=== PATIENT | male | born 1975 | race African-American/Black ===

== ENCOUNTER 2016-09-02 10:59 | Emergency (ER) | payer MEDICAID ==
[~2016-09-02] VITALS: Ht 175.3 cm; Wt 127.0 kg
[~2016-09-02 10:59] MED LIST: NAPR-677; PHEN100C4; TOPI50TA; TYLENOL
[2016-09-02] MEDS ORDERED: LORAZEPAM 2MG/ML CPJ IV PRN (11:45)
[2016-09-02 12:18] LABS: BASOPHILS % 1.2 % (0.0-2.0); EOSINOPHILS % 3.1 % (0.0-5.0); HEMATOCRIT. 38.1 % (42.0-52.0); HEMOGLOBIN. 12.8 g/dL (14.0-18.0); LYMPHOCYTES % 25.7 % (20.0-50.0); MEAN CORPUSCULAR HEMOGLOBIN 27.4 pg (28.0-32.0); MEAN CORPUSCULAR VOLUME 81.9 fL (80.0-94.0); MEAN PLATELET VOLUME 7.2 fl (7.4-10.4); MONOCYTES % 9.4 % (2.0-8.0); NEUTROPHILS % 60.6 % (40.0-76.0); PLATELET 195 x1000/uL (130-400); RED BLOOD CELL COUNT 4.66 mill/uL (4.7-6.1); RED CELL DISTRIBUTION WIDTH 15.1 % (11.6-14.6)
[2016-09-02 12:29] LABS: CARBON DIOXIDE 25 mEq/L (21-32); CHLORIDE 106 mEq/L (98-107); ETHANOL BLOOD < 10 mg/dL
[2016-09-02 12:34] LABS: PHENYTOIN 8.6 ug/mL (10-20)
[2016-09-02 13:29] VITALS: BP 142/50
[2016-09-02] MEDS ORDERED: PHENYTOIN SODIUM EXTENDED 100MG CAPSULE PO ONE (13:30)
== END 2016-09-02 13:34 | disposition home or self-care (01) ==
LOC: ER 11:10
DX: R56.9 Unspecified convulsions (principal); R79.89 Other specified abnormal findings of blood chemistry; K21.9 Gastro-esophageal reflux disease without esophagitis; I10 Essential (primary) hypertension; E78.00 Pure hypercholesterolemia, unspecified
CPT/HCPCS: 36415; 80053; 80185; 85025; 99284; G0482; Z7610

== ENCOUNTER 2016-10-05 10:48 | Emergency (ER) | payer MEDICAID ==
[~2016-10-05] VITALS: Ht 175.3 cm; Wt 91.0 kg
[2016-10-05 11:29] LABS: EOSINOPHILS % 2.2 % (0.0-5.0); HEMATOCRIT. 43.7 % (42.0-52.0); HEMOGLOBIN. 14.3 g/dL (14.0-18.0); LYMPHOCYTES % 34.1 % (20.0-50.0); MEAN CORPUSCULAR VOLUME 82.5 fL (80.0-94.0); MEAN PLATELET VOLUME 7.4 fl (7.4-10.4); MONOCYTES % 10.6 % (2.0-8.0); NEUTROPHILS % 52.1 % (40.0-76.0); PLATELET 224 x1000/uL (130-400); RED BLOOD CELL COUNT 5.29 mill/uL (4.7-6.1); RED CELL DISTRIBUTION WIDTH 15.1 % (11.6-14.6)
[2016-10-05 11:41] LABS: PARTIAL THROMBOPLASTIN TIME 25.9 sec (23.4-31.0); PROTHROMBIN TIME 10.9 sec (9.4-11.6)
[2016-10-05 11:45] LABS: CARBON DIOXIDE 24 mEq/L (21-32); CHLORIDE 109 mEq/L (98-107); CREATINE KINASE 160 IU/L (39-308); CREATINE KINASE MB FRACTION 1.4 ng/mL (0.5-3.6); TROPONIN I < 0.02 ng/mL (0.00-0.04)
[2016-10-05 11:53] LABS: PHENYTOIN 25.3 ug/mL (10-20)
[2016-10-05 13:33] VITALS: BP 112/71
== END 2016-10-05 13:34 | disposition home or self-care (01) ==
LOC: ER 10:48
DX: R07.89 Other chest pain (principal); R51 Headache; R03.0 Elevated blood-pressure reading, without diagnosis of hypertension; M79.1 Myalgia; G40.909 Epilepsy, unspecified, not intractable, without status epilepticus; T42.0X5A Adverse effect of hydantoin derivatives, initial encounter; Y92.89 Other specified places as the place of occurrence of the external cause
CPT/HCPCS: 36415; 71010; 80053; 80185; 82550; 82553; 83690; 83880; 84484; 85025; 85610; 85730; 93005; 99285; Z7610

== ENCOUNTER 2016-11-17 18:52 | Emergency (ER) | payer MEDICAID ==
[~2016-11-17] VITALS: Ht 177.8 cm; Wt 107.0 kg
[2016-11-17 20:17] LABS: CHLORIDE 107 mEq/L (98-107)
[2016-11-17 20:19] LABS: CARBON DIOXIDE 25 mEq/L (21-32); EOSINOPHILS % 2.2 % (0.0-5.0); HEMATOCRIT. 36.7 % (42.0-52.0); HEMOGLOBIN. 12.3 g/dL (14.0-18.0); LYMPHOCYTES % 32.3 % (20.0-50.0); MEAN CORPUSCULAR HEMOGLOBIN 27.8 pg (28.0-32.0); MEAN CORPUSCULAR VOLUME 82.7 fL (80.0-94.0); MEAN PLATELET VOLUME 7.1 fl (7.4-10.4); MONOCYTES % 9.5 % (2.0-8.0); PLATELET 189 x1000/uL (130-400); RED BLOOD CELL COUNT 4.43 mill/uL (4.7-6.1)
[2016-11-17] MEDS ORDERED: PHENYTOIN SODIUM 1,000 MG in SODIUM CHLORIDE 0.9% 100 ML IV ONE (21:15)
[2016-11-17] MEDS ORDERED: PHENYTOIN SODIUM EXTENDED 100MG CAPSULE PO ONE (21:30)
[2016-11-17 22:01] VITALS: BP 127/77
== END 2016-11-17 22:02 | disposition home or self-care (01) ==
LOC: ER 20:04
DX: R56.9 Unspecified convulsions (principal); R79.89 Other specified abnormal findings of blood chemistry; E78.00 Pure hypercholesterolemia, unspecified
CPT/HCPCS: 36415; 80053; 80185; 85025; 99284; J1165; Z7610; J7050

== ENCOUNTER 2016-12-22 10:26 | Emergency (ER) | payer MEDICAID ==
[~2016-12-22] VITALS: Ht 177.8 cm; Wt 100.0 kg
[2016-12-22 12:38] LABS: CARBON DIOXIDE 24 mEq/L (21-32); CHLORIDE 109 mEq/L (98-107)
[2016-12-22 13:09] VITALS: BP 126/89
== END 2016-12-22 13:15 | disposition home or self-care (01) ==
LOC: ER 10:33
DX: R56.9 Unspecified convulsions (principal); R79.89 Other specified abnormal findings of blood chemistry
CPT/HCPCS: 36415; 80048; 80185; 99284; Z7610

== ENCOUNTER 2017-12-08 11:12 | Emergency (ER) | payer MEDICAID ==
[~2017-12-08] VITALS: Ht 175.3 cm; Wt 87.0 kg
[2017-12-08] MEDS ORDERED: SODIUM CHLORIDE 0.9% 1,000 ML IV ONE (11:48)
[2017-12-08 12:26] LABS: HEMATOCRIT. 42.6 % (42.0-52.0); MEAN CORPUSCULAR HEMOGLOBIN 27.8 pg (28.0-32.0); MEAN CORPUSCULAR VOLUME 84.9 fL (80.0-94.0); MEAN PLATELET VOLUME 7.1 fl (7.4-10.4); MONOCYTES % 5.5 % (2.0-8.0); NEUTROPHILS % 77.5 % (40.0-76.0); PLATELET 244 x1000/uL (130-400); RED BLOOD CELL COUNT 5.02 mill/uL (4.7-6.1); RED CELL DISTRIBUTION WIDTH 15.4 % (11.6-14.6)
[2017-12-08 12:37] LABS: CHLORIDE 109 mEq/L (98-107); ETHANOL BLOOD < 10 mg/dL
[2017-12-08] MEDS ORDERED: PHENYTOIN SODIUM EXTENDED 100MG CAPSULE PO ONE (13:30)
[2017-12-08 16:00] VITALS: BP 139/68
== END 2017-12-08 18:22 | disposition home or self-care (01) ==
LOC: ER 11:12
DX: G40.909 Epilepsy, unspecified, not intractable, without status epilepticus (principal); R73.9 Hyperglycemia, unspecified; I10 Essential (primary) hypertension; F17.210 Nicotine dependence, cigarettes, uncomplicated; Z91.14 Patient's other noncompliance with medication regimen; Z71.6 Tobacco abuse counseling
CPT/HCPCS: 36415; 80048; 80185; 85025; 99284; 99406; G0482; J7030

== ENCOUNTER 2018-05-04 15:26 | Emergency (ER) | payer MEDICAID ==
[~2018-05-04] VITALS: Ht 175.3 cm; Wt 100.0 kg
[2018-05-04] MEDS ORDERED: SODIUM CHLORIDE 0.9% 1,000 ML IV ONE (15:57)
[2018-05-04 16:28] LABS: BASOPHILS % 1.4 % (0.0-2.0); EOSINOPHILS % 2.4 % (0.0-5.0); HEMATOCRIT. 38.5 % (42.0-52.0); HEMOGLOBIN. 12.5 g/dL (14.0-18.0); LYMPHOCYTES % 33.1 % (20.0-50.0); MEAN CORPUSCULAR HEMOGLOBIN 27.4 pg (28.0-32.0); MEAN PLATELET VOLUME 7.4 fl (7.4-10.4); MONOCYTES % 9.2 % (2.0-8.0); NEUTROPHILS % 53.9 % (40.0-76.0); PLATELET 225 x1000/uL (130-400); RED BLOOD CELL COUNT 4.58 mill/uL (4.7-6.1); RED CELL DISTRIBUTION WIDTH 15.1 % (11.6-14.6)
[2018-05-04 16:30] LABS: CHLORIDE 108 mEq/L (98-107)
[2018-05-04 16:35] LABS: ETHANOL BLOOD < 10 mg/dL
[2018-05-04 16:48] LABS: CARBAMAZEPINE < 0.5 ug/mL (4-12); PHENOBARBITAL < 2.1 ug/mL (15.0-40.0)
[2018-05-04] MEDS ORDERED: PHENYTOIN SODIUM EXTENDED 100MG CAPSULE PO ONE (18:15)
[2018-05-04 18:27] LABS: INR 1.1; PROTHROMBIN TIME 10.7 sec (9.1-11.1)
[2018-05-04 20:42] VITALS: BP 118/76
== END 2018-05-04 20:45 | disposition home or self-care (01) ==
LOC: ER 15:26
DX: G40.909 Epilepsy, unspecified, not intractable, without status epilepticus (principal)
CPT/HCPCS: 36415; 70450; 80053; 80156; 80165; 80184; 80185; 80320; 83605; 85025; 85610; 87040; 99284; J7030; 80305; G0480

== ENCOUNTER 2018-09-08 09:37 | Emergency (ER) | payer MEDICAID ==
[~2018-09-08] VITALS: Ht 177.8 cm; Wt 86.0 kg
[2018-09-08] MEDS ORDERED: SODIUM CHLORIDE 0.9% 1,000 ML IV ONE (10:08)
[2018-09-08 10:22] LABS: BASOPHILS % 1.9 % (0.0-2.0); EOSINOPHILS % 1.9 % (0.0-5.0); HEMATOCRIT. 40.6 % (42.0-52.0); HEMOGLOBIN. 13.6 g/dL (14.0-18.0); LYMPHOCYTES % 31.7 % (20.0-50.0); MEAN CORPUSCULAR HEMOGLOBIN 27.9 pg (28.0-32.0); MEAN CORPUSCULAR VOLUME 83.3 fL (80.0-94.0); MEAN PLATELET VOLUME 7.3 fl (7.4-10.4); MONOCYTES % 7.6 % (2.0-8.0); NEUTROPHILS % 56.9 % (40.0-76.0); PLATELET 256 x1000/uL (130-400); RED BLOOD CELL COUNT 4.87 mill/uL (4.7-6.1); RED CELL DISTRIBUTION WIDTH 15.9 % (11.6-14.6)
[2018-09-08 10:29] LABS: CHLORIDE 106 mEq/L (98-107)
[2018-09-08] MEDS ORDERED: PHENYTOIN SODIUM 1,000 MG in SODIUM CHLORIDE 0.9% 100 ML IV ONE (11:30)
[2018-09-08 15:44] VITALS: BP 138/84
== END 2018-09-08 15:45 | disposition home or self-care (01) ==
LOC: ER 09:37
DX: R56.9 Unspecified convulsions (principal)
CPT/HCPCS: 36415; 80053; 80185; 85025; 96365; 99283; J1165; J7030; J7050

== ENCOUNTER 2018-10-01 10:40 | Emergency (ER) | payer MEDICAID ==
[~2018-10-01] VITALS: Ht 177.8 cm; Wt 86.0 kg
[2018-10-01] MEDS ORDERED: TETANUS, DIPHTHERIA, PERTUSSIS VAC/PF 0.5ML (>7YR OLD) IM ONE (10:45)
[2018-10-01 11:22] LABS: HEMATOCRIT. 36.6 % (42.0-52.0); HEMOGLOBIN. 12.3 g/dL (14.0-18.0); MEAN CORPUSCULAR HEMOGLOBIN 27.6 pg (28.0-32.0); MEAN CORPUSCULAR VOLUME 82.5 fL (80.0-94.0); MEAN PLATELET VOLUME 7.5 fl (7.4-10.4); PLATELET 225 x1000/uL (130-400); RED BLOOD CELL COUNT 4.43 mill/uL (4.7-6.1); RED CELL DISTRIBUTION WIDTH 15.5 % (11.6-14.6)
[2018-10-01 11:30] LABS: CHLORIDE 108 mEq/L (98-107)
[2018-10-01 11:37] LABS: ETHANOL BLOOD < 10 mg/dL
[2018-10-01 11:40] LABS: PLATELET ESTIMATE NORMAL
[2018-10-01] MEDS ORDERED: BACITRACIN 15GM TUBE TOP SCH (12:30)
[2018-10-01] MEDS ORDERED: BACITRACIN ZINC OINT UDPKT TOP ONE (12:30)
[2018-10-01] MEDS ORDERED: POTASSIUM CHLORIDE 20MEQ TABLET SR PO ONE (12:30)
[2018-10-01 12:46] VITALS: BP 150/92
== END 2018-10-01 12:49 | disposition home or self-care (01) ==
LOC: ER 10:47
DX: G40.89 Other seizures (principal); E87.6 Hypokalemia
CPT/HCPCS: 36415; 80185; 80320; 90471; 90715; 99283; G0480

== ENCOUNTER 2019-03-29 14:28 | Emergency (ER) | payer MEDICAID ==
[~2019-03-29] VITALS: Ht 175.3 cm; Wt 89.0 kg
[2019-03-29] MEDS ORDERED: SODIUM CHLORIDE 0.9% 1,000 ML IV ONE (16:48)
[2019-03-29] MEDS ORDERED: LEVETIRACETAM 500MG PREMIX 100 ML IV ONE (17:00)
[2019-03-29 17:02] LABS: BASOPHILS % 1.2 % (0.0-2.0); EOSINOPHILS % 2.4 % (0.0-5.0); HEMATOCRIT. 42.4 % (42.0-52.0); HEMOGLOBIN. 13.8 g/dL (14.0-18.0); LYMPHOCYTES % 28.6 % (20.0-50.0); MEAN CORPUSCULAR HEMOGLOBIN 27.3 pg (28.0-32.0); MEAN CORPUSCULAR VOLUME 83.9 fL (80.0-94.0); MEAN PLATELET VOLUME 8.1 fl (7.4-10.4); MONOCYTES % 5.3 % (2.0-8.0); NEUTROPHILS % 62.5 % (40.0-76.0); PLATELET 230 x1000/uL (130-400); RED BLOOD CELL COUNT 5.06 mill/uL (4.7-6.1); RED CELL DISTRIBUTION WIDTH 14.1 % (11.6-14.6)
[2019-03-29 17:09] LABS: CHLORIDE 105 mEq/L (98-107)
[2019-03-29 17:12] LABS: ETHANOL BLOOD < 10 mg/dL
[2019-03-29 17:17] LABS: CARBAMAZEPINE < 0.5 ug/mL (4-12)
[2019-03-29 17:19] LABS: CREATINE KINASE 471 IU/L (39-308)
[2019-03-29 17:21] LABS: PHENOBARBITAL < 2.1 ug/mL (15.0-40.0); VALPROIC ACID < 3.0 ug/mL (50-100)
[2019-03-29 19:26] LABS: CLARITY URINE CLEAR (CLEAR); COLOR URINE YELLOW (YELLOW); KETONES URINE NEGATIVE (NEGATIVE); LEUKOCYTE ESTERASE URINE NEGATIVE (NEGATIVE); NITRITE URINE NEGATIVE (NEGATIVE); OCCULT BLOOD URINE NEGATIVE (NEGATIVE); PROTEIN URINE 1+ (NEGATIVE); SPECIFIC GRAVITY URINE 1.015 (1.005-1.030); UROBILINOGEN URINE 0.2 E.U./dL (0.2-1.0)
[2019-03-29] MEDS ORDERED: PHENYTOIN SODIUM EXTENDED 100MG CAPSULE PO ONE (19:30)
[2019-03-29 19:37] LABS: *AMPHETAMINES SCREEN URINE NEGATIVE (NEGATIVE); *BARBITURATES SCREEN URINE NEGATIVE (NEGATIVE); *BENZODIAZEPINES SCREEN URINE NEGATIVE (NEGATIVE)
[2019-03-29 19:38] LABS: *COCAINE SCREEN URINE NEGATIVE (NEGATIVE); CANNABINOID URINE SCREEN NEGATIVE (NEGATIVE); METHADONE URINE SCREEN NEGATIVE (NEGATIVE); OPIATES URINE SCREEN NEGATIVE (NEGATIVE); PHENCYCLIDINE URINE SCREEN NEGATIVE (NEGATIVE)
[2019-03-29 23:18] VITALS: BP 129/71
== END 2019-03-29 23:20 | disposition home or self-care (01) ==
LOC: ER 14:35
DX: G40.909 Epilepsy, unspecified, not intractable, without status epilepticus (principal); E86.0 Dehydration
CPT/HCPCS: 36415; 80053; 80156; 80165; 80184; 80185; 80305; 80320; 81003; 82550; 84443; 85025; 93005; 96365; 99284; J1953; J7030; G0480

== ENCOUNTER 2020-05-03 18:30 | Emergency (ER) | payer MEDICAID ==
[~2020-05-03] VITALS: Ht 177.8 cm; Wt 100.0 kg
[2020-05-03] MEDS ORDERED: SODIUM CHLORIDE 0.9% 1,000 ML IV ONE (19:15)
[2020-05-03 19:39] LABS: BASOPHILS % 0.7 % (0.0-2.0); HEMATOCRIT. 41.2 % (42.0-52.0); HEMOGLOBIN. 13.1 g/dL (14.0-18.0); LYMPHOCYTES % 29.4 % (20.0-50.0); MEAN CORPUSCULAR HEMOGLOBIN 26.7 pg (28.0-32.0); MEAN CORPUSCULAR VOLUME 84.4 fL (80.0-94.0); MEAN PLATELET VOLUME 7.6 fl (7.4-10.4); MONOCYTES % 5.6 % (2.0-8.0); NEUTROPHILS % 63.3 % (40.0-76.0); PLATELET 231 x1000/uL (130-400); RED BLOOD CELL COUNT 4.89 mill/uL (4.7-6.1)
[2020-05-03 19:47] LABS: CHLORIDE 108 mEq/L (98-107)
[2020-05-03] MEDS ORDERED: LEVETIRACETAM 500MG PREMIX 100 ML IV ONE (20:00)
[2020-05-03 20:13] LABS: CARBAMAZEPINE < 0.5 ug/mL (4-12); PHENOBARBITAL < 2.1 ug/mL (15.0-40.0); VALPROIC ACID < 3.0 ug/mL (50-100)
[2020-05-03 23:54] VITALS: BP 125/79
== END 2020-05-03 23:56 | disposition home or self-care (01) ==
LOC: ER 18:30
DX: G40.909 Epilepsy, unspecified, not intractable, without status epilepticus (principal)
CPT/HCPCS: 36415; 80053; 80156; 80165; 80184; 80185; 82962; 85025; 93005; 96365; 99284; J1953; J7030

== ENCOUNTER 2020-10-24 14:26 | Emergency (ER) | payer MEDICAID ==
[~2020-10-24] VITALS: Ht 182.9 cm; Wt 120.0 kg
[2020-10-24] MEDS ORDERED: LEVETIRACETAM 1000MG PREMIX 100 ML IV ONE (16:00)
[2020-10-24] MEDS ORDERED: SODIUM CHLORIDE 0.9% 1,000 ML IV ONE (17:15)
[2020-10-24] MEDS ORDERED: LEVETIRACETAM 500MG/5ML CUP PO ONE (19:15)
[2020-10-24 19:25] VITALS: BP 116/76
[2020-10-24 19:59] LABS: BASOPHILS % 0.4 % (0.0-2.0); EOSINOPHILS % 0.2 % (0.0-5.0); HEMATOCRIT. 41.6 % (42.0-52.0); HEMOGLOBIN. 13.9 g/dL (14.0-18.0); LYMPHOCYTES % 12.2 % (20.0-50.0); MEAN CORPUSCULAR HEMOGLOBIN 27.6 pg (28.0-32.0); MEAN CORPUSCULAR VOLUME 82.4 fL (80.0-94.0); MEAN PLATELET VOLUME 7.7 fl (7.4-10.4); MONOCYTES % 5.9 % (2.0-8.0); NEUTROPHILS % 81.3 % (40.0-76.0); PLATELET 226 x1000/uL (130-400); RED BLOOD CELL COUNT 5.04 mill/uL (4.7-6.1); RED CELL DISTRIBUTION WIDTH 15.4 % (11.6-14.6)
[2020-10-24 20:01] LABS: CHLORIDE 108 mEq/L (98-107)
[2020-10-24 20:05] LABS: ETHANOL BLOOD < 10 mg/dL
[2020-10-24 20:22] LABS: CLARITY URINE CLEAR (CLEAR); COLOR URINE YELLOW (YELLOW); KETONES URINE NEGATIVE (NEGATIVE); LEUKOCYTE ESTERASE URINE NEGATIVE (NEGATIVE); NITRITE URINE NEGATIVE (NEGATIVE); OCCULT BLOOD URINE NEGATIVE (NEGATIVE); PH URINE 6.5 (4.5-8.0); PROTEIN URINE 1+ (NEGATIVE); SPECIFIC GRAVITY URINE 1.022 (1.005-1.030)
[2020-10-24 20:31] LABS: *AMPHETAMINES SCREEN URINE NEGATIVE (NEGATIVE); *BARBITURATES SCREEN URINE NEGATIVE (NEGATIVE); *BENZODIAZEPINES SCREEN URINE NEGATIVE (NEGATIVE)
[2020-10-24 20:32] LABS: *COCAINE SCREEN URINE NEGATIVE (NEGATIVE); CANNABINOID URINE SCREEN NEGATIVE (NEGATIVE); METHADONE URINE SCREEN NEGATIVE (NEGATIVE); OPIATES URINE SCREEN NEGATIVE (NEGATIVE); PHENCYCLIDINE URINE SCREEN NEGATIVE (NEGATIVE)
== END 2020-10-24 21:13 | disposition home or self-care (01) ==
LOC: ER 14:57
DX: G40.909 Epilepsy, unspecified, not intractable, without status epilepticus (principal); E78.00 Pure hypercholesterolemia, unspecified
CPT/HCPCS: 36415; 80053; 80305; 80320; 81003; 85025; 93005; 96365; 99284; J1953; J7030; G0480

== ENCOUNTER 2021-01-27 15:32 | Inpatient (IN) | payer MEDICAID ==
[~2021-01-27] VITALS: Ht 188 cm; Wt 122.0 kg
[2021-01-27] MEDS ORDERED: SODIUM CHLORIDE 0.9% 1,000 ML IV ONE (16:00)
[2021-01-27 16:36] LABS: BASOPHILS % 1.1 % (0.0-2.0); EOSINOPHILS % 1.5 % (0.0-5.0); HEMATOCRIT. 45.6 % (42.0-52.0); HEMOGLOBIN. 14.5 g/dL (14.0-18.0); LYMPHOCYTES % 27.3 % (20.0-50.0); MEAN CORPUSCULAR HEMOGLOBIN 26.6 pg (28.0-32.0); MEAN CORPUSCULAR VOLUME 83.7 fL (80.0-94.0); MONOCYTES % 5.9 % (2.0-8.0); NEUTROPHILS % 64.2 % (40.0-76.0); RED BLOOD CELL COUNT 5.44 mill/uL (4.7-6.1); RED CELL DISTRIBUTION WIDTH 13.9 % (11.6-14.6)
[2021-01-27 16:38] LABS: CHLORIDE 108 mEq/L (98-107)
[2021-01-27 16:42] LABS: ETHANOL BLOOD < 10 mg/dL
[2021-01-27 17:01] LABS: VALPROIC ACID < 3.0 ug/mL (50-100)
[2021-01-27 17:19] LABS: MEAN PLATELET VOLUME 7.8 fl (7.4-10.4); PLATELET 180 x1000/uL (130-400)
[2021-01-27 19:06] LABS: CLARITY URINE CLEAR (CLEAR); COLOR URINE YELLOW (YELLOW); KETONES URINE NEGATIVE (NEGATIVE); LEUKOCYTE ESTERASE URINE NEGATIVE (NEGATIVE); NITRITE URINE NEGATIVE (NEGATIVE); OCCULT BLOOD URINE NEGATIVE (NEGATIVE); PH URINE 6.5 (4.5-8.0); PROTEIN URINE 2+ (NEGATIVE); SPECIFIC GRAVITY URINE 1.024 (1.005-1.030); UROBILINOGEN URINE 0.2 E.U./dL (0.2-1.0)
[2021-01-27 19:15] LABS: *COCAINE SCREEN URINE NEGATIVE (NEGATIVE); METHADONE URINE SCREEN NEGATIVE (NEGATIVE)
[2021-01-27 19:16] LABS: *AMPHETAMINES SCREEN URINE NEGATIVE (NEGATIVE); *BARBITURATES SCREEN URINE NEGATIVE (NEGATIVE); *BENZODIAZEPINES SCREEN URINE NEGATIVE (NEGATIVE); CANNABINOID URINE SCREEN NEGATIVE (NEGATIVE); OPIATES URINE SCREEN NEGATIVE (NEGATIVE); PHENCYCLIDINE URINE SCREEN NEGATIVE (NEGATIVE)
[2021-01-27] MEDS ORDERED: PHENYTOIN SODIUM EXTENDED 100MG CAPSULE PO NR (21:00)
[2021-01-27] MEDS ORDERED: ASPIRIN 81MG TABLET PO ONE (21:00)
[2021-01-28 08:40] VITALS: BP 130/76
[2021-01-28] MEDS ORDERED: LEVETIRACETAM 500MG TABLET PO SCH (09:00)
== END 2021-01-28 09:20 | disposition left against medical advice (07) | DRG 53 ==
LOC: ER 15:32 → MICUSO 20:55 → EDBEDREQ 21:01 → EDBEDREQTM 21:01
PROVIDERS: ADMIT Internal Medicine; ATTEND Internal Medicine
DX: R56.9 Unspecified convulsions (principal); E78.00 Pure hypercholesterolemia, unspecified; Z20.822 Contact with and (suspected) exposure to COVID-19; Z53.29 Procedure and treatment not carried out because of patient's decision for other reasons; Z82.49 Family history of ischemic heart disease and other diseases of the circulatory system
CPT/HCPCS: 36415; 71045; 80053; 80165; 80185; 80305; 80320; 81003; 82962; 84484; 85025; 87426; 93005; 99285; J7030; G0480

== ENCOUNTER 2021-05-15 22:51 | Emergency (ER) | payer MEDICAID ==
[~2021-05-15] VITALS: Ht 175.3 cm; Wt 109.0 kg
[2021-05-16 01:30] VITALS: BP 107/66
== END 2021-05-16 02:00 | disposition home or self-care (01) ==
LOC: ER 22:51
DX: G40.909 Epilepsy, unspecified, not intractable, without status epilepticus (principal); E78.00 Pure hypercholesterolemia, unspecified
CPT/HCPCS: 82962; 99283

== ENCOUNTER 2024-04-30 18:59 | Emergency (ER) | payer MEDICAID ==
[~2024-04-30] VITALS: Ht 170.2 cm; Wt 96.0 kg
[2024-04-30 19:04] VITALS: TEMP 36.7; O2SAT 98
[2024-04-30 21:27] VITALS: BP 155/75; PULSE 67; RESP 18; O2SAT 97
== END 2024-04-30 21:45 | disposition home or self-care (01) ==
LOC: ER 18:59
DX: G40.909 Epilepsy, unspecified, not intractable, without status epilepticus (principal); I10 Essential (primary) hypertension; Z79.899 Other long term (current) drug therapy
CPT/HCPCS: 99283